=== PATIENT | male | born 1990 | race Caucasian/White ===

== ENCOUNTER 2018-03-19 13:22 | Day surgery (SDC) | payer OTHER, SELFPAY ==
--- NOTE | 2018-03-19 | PATH_ITS ---
[facility] Accession Number: [id number] . 01 Material submitted: . RANDOM COLON BIOPSIES . 02 Diagnosis: Random Colon Biopsies: Colonic mucosa with no diagnostic abnormality. Negative for active, chronic, and microscopic colitis. Negative for dysplasia or malignancy. V/03/21/2018 . 02 Electronically signed: . Shahnaz Pitt MD, Pathologist NPI- [id number] . 01 Gross description: . RANDOM COLON BIOPSIES: Received in formalin are multiple fragment(s) of wisdom, soft tissue measuring 1.0 x 0.7 x 0.2 cm in aggregate submitted entirely in 1 cassette(s) /CKI /CKI . 02 Pathologist provided ICD-10: K52.9 . 02 CPT . 498968 Performed at: 01 [facility] [address] [place] [address], [place], [place] [id number] MD Hector Fuentes MD Phone: [phone] Performed at: [address] [facility] [address] [place], [place] [id number] MD Shae Guevara MD Phone: [phone]
--- NOTE | 2018-03-19 12:45 | PM.HP.1 ---
History of Present Illness Date Patient Seen: 03/19/18 Chief complaint: [id number] Narrative: 27-year-old male who was seen at our office on 03/04/2018 for rectal bleeding, abdominal pain, and diarrhea who is here for further evaluation. Please refer to our office note for further details. The patient has had no significant changes in his clinical condition since that office visit. Patient History Social History household members: friend(s) Meds Allergies Allergy/AdvReac Type Severity Reaction Status Date / Time No Known Drug Allergies Allergy Verified 03/19/18 13:23 Exam Narrative Exam Narrative: General: Patient is well developed, not in apparent distress Cardiovascular: Regular rate and rhythm, no murmurs, rubs, or gallops; no evidence of edema; no palpable abdominal aortic aneurysm Gastrointestinal: Normoactive bowel sounds, soft, nontender, nondistended, no rebound tenderness, no hepatosplenomegaly, no evidence of hernia Assessment & Plan Assessment Narrative: 27-year-old male with history of diarrhea, rectal bleeding, and abdominal pain here for colonoscopy Regarding the procedure(s), the risks and potential complications, benefits, and alternatives (including not doing the procedure) were discussed with the patient. The risks include but are not limited to bleeding, splenic injury, infection, perforation which may require surgical intervention, missed lesions, and adverse reactions to sedative medicines. After a question and answer period, the patient agreed to proceed with the procedure(s) and gives informed consent.
[2018-03-19 13:35] VITALS: BMI 24.3
[2018-03-19 13:41] VITALS: BP 124/76; PULSE 65; RESP 16; TEMP 36.5; O2SAT 100
[2018-03-19] MEDS: SODIUM CHLORIDE 0.9% 1,000 ML 70 ML IV (13:52)
--- NOTE | 2018-03-19 14:20 | P.OP.ENDO_ITS ---
Operative Date/Time/Diagnoses Date of procedure: 03/19/18 Procedure Notes Procedure in detail: Surgeon: Carlton Faulkner MD Procedure: Colonoscopy with biopsy Preoperative diagnosis: Rectal bleeding, diarrhea Postoperative diagnosis: Grade 1 internal hemorrhoids, otherwise normal colon oscopy, random colon biopsies obtained Medications: Conscious sedation using 7 mg IV of Midazolam and 150 mcg IV of Fentanyl Preanesthesia Assessment An H and P was performed/updated and the Px?s ASA class is 1. The procedure was discussed in detail with the patient. The potential risks and complications including infection, bleeding, missed lesions, perforation, need for surgery in case of perforation, prolonged hospital stay, and were explained. A brief question and answer period was allotted and once all questions were answered, informed consent was obtained. The patient was brought back to the procedure room and placed on standard monitoring. The patient?s vital signs were monitored continuously throughout the entire procedure. Prior to starting, a timeout was performed to confirm the patient?s identity, allergies, medications, and procedure. Procedure in detail The patient was placed in left lateral decubitus position and once adequate sedation was obtained a RONALD was performed. The digital rectal examination did not reveal any palpable lesions. The tip of the colonoscope was placed in the anal canal and advanced without difficulty all the way to the cecum which was identified by the appendiceal orifice and the ileocecal valve. The terminal ileum was intubated to a distance of 10 cm from the ileocecal valve and showed no mucosal abnormalities Careful examination of all juan of the colon was performed with irrigation of any residual stool. The colonic mucosa appeared normal throughout the entire colon with no evidence of polyps or ulceration. Random colon biopsies were taken to rule out microscopic colitis. Retroflexion was performed in the rectum which revealed grade 1 internal hemorrhoids. The patient tolerated the procedure well and will be brought back to the recovery area to be discharged once criteria are met. The prep was judged to be good and adequate to identify polyps less than 5 mm. The withdrawal time was 9 min. The total physician intraservice time was 15 min. Complications There were no complications and estimated blood loss was minimal. Recommendations: Resume previous diet Follow up pathology results Repeat colonoscopy at age 51 for screening Office follow up with Dr. Turk at next available appointment An emergency contact number was given to the patient for any complications related to the procedure
[2018-03-19] MEDS: fentaNYL 250 MCG/5 ML INJ IV (14:22)
[2018-03-19] MEDS: MIDAZOLAM 5 MG/5 ML VIAL IV (14:23)
--- NOTE | 2018-03-19 14:36 | PM.DS.1 ---
History of Present Illness Chief complaint: [id number] Narrative: 27-year-old male who was seen at our office on 03/04/2018 for rectal bleeding, abdominal pain, and diarrhea who is here for further evaluation. Please refer to our office note for further details. The patient has had no significant changes in his clinical condition since that office visit. Discharge Providers Discharge provider: Carlton Faulkner MD Discharge Date: 03/19/18 Exam Vital Signs (past 8 hours): - 03/19/18 13:41 Temperature 97.7 F Pulse Rate 65 Respiratory Rate 16 Blood Pressure 124/76 Pulse Oximetry 100 Oxygen Delivery Method Room Air Narrative Exam Narrative: General: Patient is well developed, not in apparent distress Cardiovascular: Regular rate and rhythm, no murmurs, rubs, or gallops; no evidence of edema; no palpable abdominal aortic aneurysm Gastrointestinal: Normoactive bowel sounds, soft, nontender, nondistended, no rebound tenderness, no hepatosplenomegaly, no evidence of hernia Discharge Plan Discharge Plan Patient Disposition: Home Discharge comment: You will be discharged with a copy of your procedure report Discharge Med Rec/Prescriptions Discharge Orders: Discharge (Order); Ordered 03/19/18 Ordered By: Carlton Faulkner Provider Discharge Instructions Diet: Diet as Tolerated Visit Report/Discharge Packet Stand Alone Forms: Colonoscopy Result: [facility], Surgery Discharge Discharge Data Attending Provider: Carlton Faulkner
[2018-03-19 15:00] VITALS: BP 105/60; PULSE 86; RESP 16; TEMP 36.5; O2SAT 100
--- NOTE | 2018-03-19 15:07 | SUR.PHASEII ---
Pt bypassed PACU, awake on arrival, vss. friend brought in, d/c instructions discussed, both voiced an understanding and pt dressed when ready and left in stable condition.
== END 2018-03-19 15:09 | disposition home or self-care (01) ==
PROVIDERS: Visit Provider Internal Medicine Gastroenterology
PROC: 0DJD8ZZ Inspection of Lower Intestinal Tract, Via Natural or Artificial Opening Endoscopic (ICD-10-PCS; CPT 45378; principal; 2018-03-19 14:30)
DX: K52.9 Noninfective gastroenteritis and colitis, unspecified (principal); K64.0 First degree hemorrhoids
CPT/HCPCS: 45380; 88305; J2250; J3010